=== PATIENT | male | born 1960 | race Caucasian/White ===

== ENCOUNTER → 2021-04-11 11:23 | Outpatient (CLI) | payer BC, SELFPAY ==
[2021-04-11 12:27] LABS: Blood Urea Nitrogen 16 mg/dl (9-20); Estimated Glomerular Filt Rate 76 ml/min (>60); GFR (African American) 92 ML/MIN (>60)
== END ==
PROVIDERS: Visit Provider Family Medicine
DX: R10.32 Left lower quadrant pain (principal); R19.04 Left lower quadrant abdominal swelling, mass and lump
CPT/HCPCS: 36415; 82565; 84520

== ENCOUNTER → 2021-04-17 08:41 | Outpatient (CLI) | payer BC, SELFPAY ==
--- NOTE | 2021-04-17 08:46 | CT_ITS ---
PROCEDURE: CT ABDOMEN PELVIS W CON CLINICAL INDICATION: LLQ ABD PAIN/ABD MASS COMPARISON: CT ABDPELW/O CT ABD PELVIS W/O CONTRAST from 05/13/2017 TECHNIQUE: IV Contrast: 75ML Isovue 370 Oral Contrast None Axial images obtained with sagittal and coronal reformats. All CT scans at the facility use one or more dose reduction, viz: automated exposure control, ma/kV adjustment per patient size (including targeted exams where dose is matched to indication, i.e. head), or iterative reconstruction technique. FINDINGS: There is mild scar versus atelectasis in the lung bases. Mild diffuse fatty infiltration of the liver. No focal liver or splenic lesion. Gallbladder pancreas and adrenal glands are normal. A few small nonobstructing stones in the right kidney. Left kidney is normal. No upper abdominal lymphadenopathy. Mild calcification of the abdominal aorta without aneurysm. Moderate amount of stool throughout the colon. No distended large or small bowel or bowel wall thickening. Large left inguinal hernia containing a loop of sigmoid colon without evidence of obstruction or incarceration. Scattered diverticula noted in the colon without diverticulitis. Bladder is normal. Prostate gland and seminal vesicles appear unremarkable. No enlarged iliac or inguinal chain lymph nodes. Appendix is normal. Severe degenerative change of the left hip joint with moderate degenerative change of right hip joint. Some diffuse degenerative change of the lumbar spine, particularly at L5-S1. No acute bony abnormality. IMPRESSION: Large left inguinal hernia containing a loop of sigmoid colon without evidence of obstruction or incarceration. Scattered diverticula on the colon without diverticulitis. Moderate amount of stool throughout the colon. No free intraperitoneal air or fluid. Mild diffuse fatty infiltration of the liver. [id number] right nephrolithiasis. No CT evidence of obstructive uropathy. Findings were discussed by telephone with Dr. Diamond on 04/17/2021 at approximately 1040 hours. Dictated by: Jim Toussaint MD 04/17/2021 10:38 Jim Toussaint MD in [facility] 04/17/2021 10:38
== END ==
PROVIDERS: PCP Family Medicine; Visit Provider Family Medicine
DX: R10.32 Left lower quadrant pain (principal); R19.04 Left lower quadrant abdominal swelling, mass and lump
CPT/HCPCS: 74177; Q9967

== ENCOUNTER → 2021-04-26 13:27 | Outpatient (CLI) | payer BC, SELFPAY ==
--- NOTE | 2021-04-26 13:33 | XR_ITS ---
PROCEDURE: XR KNEE LT 3V CLINICAL INDICATION: LT KNEE PAIN, UNSPECIFIED CHRONICITY COMPARISON: No exams were available for comparison FINDINGS: No fracture or dislocation. No lytic or blastic change. There is normal mineralization. The joint spaces are well-preserved. No significant degenerative/arthritic changes. No erosive changes evident. Other findings:None. IMPRESSION: Negative left knee Dictated by: Luiz Vital MD 04/26/2021 14:50 Luiz Vital MD in [facility] 04/26/2021 14:50
== END ==
PROVIDERS: PCP Family Medicine; Visit Provider Family Medicine
DX: M25.562 Pain in left knee (principal)
CPT/HCPCS: 73562

== ENCOUNTER → 2021-05-25 09:29 | Outpatient (CLI) | payer BC, SELFPAY ==
[2021-05-25 09:46] LABS: Basophils % 0.6 % (0.1-2.0); Eosinophils # 0.2 K/mm3 (0.0-0.4); Eosinophils % 2.7 % (0.1-12.0); Hematocrit 43.6 % (42.0-52.0); Hemoglobin 14.2 g/dL (14.1-18.0); Lymphocytes # 1.2 K/mm3 (0.7-4.5); Lymphocytes % 17.5 % (10-50); Mean Corpuscular HGB Conc 32.5 g/dL (31.8-35.4); Mean Corpuscular Volume 92.3 fl (80-94); Mean Platelet Volume 8.8 fl (7.4-10.4); Monocytes # 0.5 K/mm3 (0.1-1.0); Monocytes % 7.9 % (1.7-9.3); Neutrophils # 4.7 K/mm3 (1.8-7.8); Neutrophils % 71.3 % (37.0-80.0); Platelet Count 199 K/mm3 (142-424); Red Blood Count 4.72 M/mm3 (4.60-6.20); Red Cell Distribution Width 14.1 % (11.5-17.5); White Blood Count 6.6 K/mm3 (4.8-10.8)
[2021-05-25 10:29] LABS: Anion Gap 12.1 mEq/L (5-15); Blood Urea Nitrogen 18 mg/dl (9-20); Calcium 8.9 mg/dl (8.4-10.2); Carbon Dioxide 30 mmol/L (22.0-30.0); Chloride 107 mmol/L (98-107); Estimated Glomerular Filt Rate 62 ml/min (>60); GFR (African American) 75 ML/MIN (>60); Glucose 107 mg/dl (74-100); Potassium 5.1 mmoL/L (3.5-5.1); Sodium 144 mmol/L (136-145)
== END ==
PROVIDERS: Visit Provider Surgery
DX: Z01.812 Encounter for preprocedural laboratory examination (principal); Z20.822 Contact with and (suspected) exposure to COVID-19; K40.90 Unilateral inguinal hernia, without obstruction or gangrene, not specified as recurrent
CPT/HCPCS: 80048; 85025; U0003

== ENCOUNTER 2021-05-28 08:28 | Day surgery (SDC) | payer BC, SELFPAY ==
[2021-05-22 10:42] VITALS: BMI 24.3
[2021-05-28] VITALS (10 sets, daily range): BP systolic 146–172; BP diastolic 80–98; PULSE 61–86; RESP 12–18; TEMP 36.1–43; O2SAT 93–97
--- NOTE | 2021-05-28 08:45 | P.HP_ITS ---
HPI HPI: Patient is a 60-year-old male from [facility] referred by Dr. Diamond for left inguinal hernia. 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 Patient has been undergoing routine physical exam and had noted some swelling in the left inguinal area. He states that this has been present for at least several months. He denies any pain. Denies any inciting event. He was noted to have a moderately large hernia on examination and underwent CT scan which reveals moderately large left inguinal hernia containing loop of sigmoid colon. Patient denies any obstructive symptoms. [facility] History I have reviewed the patient's past medical history: Yes Medical History: Denies:: Cancer, Diabetes Mellitus Type 1, Diabetes Mellitus Type 2, Internal Pacemaker, MRSA *Have you ever received a pneumonia vaccine?: No *Have you received a flu vaccine this season?: Yes Other Surgeries: No: Pacemaker Amputation: No Fractures: No - *Social History Last grade of school completed: High school graduate Smoking Status: Never smoker Alcohol Intake: never Substance Use Type: denies use *Occupational Status:: employed Housing: house Household Members: spouse *Travel in the last 8 weeks: None Family Hx:: No significant family history Review of Systems - Review of Systems Review of systems:: pertinent systems reviewed and negative unless documented below Meds Home Medications Medication Instructions Recorded Confirmed Type allopurinol 300 mg tablet 300 mg PO DAILY tab 04/26/21 04/26/21 History rivaroxaban 20 mg tablet 20 mg PO DAILY tab 04/26/21 04/26/21 History Allergies Allergy/AdvReac Type Severity Reaction Status Date / Time No Known Allergies Allergy Unverified 04/26/21 14:36 Exam - Constitutional no acute distress - *Routine HEENT Exam Head: Present: normocephalic Eye: Present: EOMI, PERRL ENT: Present: mucous membranes moist - *Routine Neck Exam Present: supple. Absent: lymphadenopathy - *Routine Respiratory Exam Present: CTA bilaterally - *Routine Cardiovascular Exam Present: RRR - *Routine Abdominal Exam Present: soft, normoactive bowel sounds. Absent: tenderness - *Routine Rectal Exam Rectal:: deferred - *Routine Genitalia Exam Genitalia:: deferred Comment:: LEFT inguinal hernia - *Routine Extremities Exam Absent: cyanosis, clubbing, edema - *Routine Skin Exam Present: warm. Absent: rash - *Routine Neurological Exam Present: alert, oriented X3 Assessment and Plan - Assessment and plan all Dx Assessment and Plan for all problems:: He has moderately large left inguinal hernia. Plan is for open repair
--- NOTE | 2021-05-28 08:59 | P.PN_ITS ---
[facility] Anesthesia Checklist - Patient Identification Patient Identification: Arm Band - Structural Data Admitted From: Home Planned Operative Procedure/s: Open inguinal hernia repair Consent for Planned Operative Procedure(s) Verified: Yes - NPO Status Verified Time NPO: 00:00 - Additional verifications Anesthesia Reactions: No Hx Blood Transfusions: No Blood Transfusion Reaction: No - Airway Assessment C-Spine Mobility Assessed: Yes TMJ Mobility Assessed: Yes Dentition: Good Dentition - Neurological Assessment Level of Consciousness: Awake Hx Seizures: No Numbness or tingling in extremities: No - Anesthesia Plan Anesthesia Risk discussed: Yes Anesthesia Plan: Verified ASA Class: II Anesthesia Type: General [facility] History I have reviewed the patient's past medical history: Yes Medical History: Denies:: Cancer, Diabetes Mellitus Type 1, Diabetes Mellitus Type 2, Internal Pacemaker, MRSA, Seizures *Have you ever received a pneumonia vaccine?: No *Have you received a flu vaccine this season?: Yes Other Medical History: Denies: Blood Transfusion Reaction Anesthesia experience/problems:: None Other Surgeries: No: Pacemaker Amputation: No Fractures: No - *Social History Last grade of school completed: High school graduate Smoking Status: Never smoker Alcohol Intake: never Substance Use Type: denies use *Occupational Status:: employed Housing: house Household Members: spouse *Travel in the last 8 weeks: None Family Hx:: No significant family history
--- NOTE | 2021-05-28 11:14 | P.OP_ITS ---
Date of procedure: 05/28/21 Pre-op Diagnosis:: Left inguinal hernia Post-op Diagnosis:: Same Procedure performed:: Open repair of left inguinal hernia with placement of large sized Bard prefix mesh with onlay mesh Surgeon:: Kartik Baer MD WATER TECHNICIAN:: Barbara Ellis Anesthesia: GETA Estimated blood loss (mL): 15 Clinical Note:: Patient is a 60-year-old male from [facility] referred by Dr. Diamond for left inguinal hernia. 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 Patient has been undergoing routine physical exam and had noted some swelling in the left inguinal area. He states that this has been present for at least several months. He denies any pain. Denies any inciting event. He was noted to have a moderately large hernia on examination and underwent CT scan which reveals moderately large left inguinal hernia containing loop of sigmoid colon. Patient denies any obstructive symptoms. Operative findings:: Patient had a large indirect hernia with chronically incarcerated epiploic fat with the sigmoid colon intermittently herniating. There was also chronically incarcerated small direct hernia containing fat. Operative note:: Patient was taken the operating room. He was positioned supine position. General anesthesia was induced. Tam catheter was placed. Lower abdomen and perineum were prepped and draped in the standard surgical fashion. Oblique incision was made in the left inguinal area superior to landmarks identifying the inguinal ligament. Dissection was carried down through subcutaneous tissues and Venu's fascia using electrocautery with hemostasis achieved as needed. Extra oblique muscle was cleaned free. External oblique muscle was opened along the length of its fibers. Underlying cord structures were identified. Due to the chronic nature of the large hernia with attenuated tissues it was difficult to identify ilioinguinal nerve. Cord structures were dissected free from the floor the inguinal canal and encircled with a Sharon drain. Dissection was carried out. Prolonged dissection was performed and ultimately hernia sac and contents were identified and the hernia sac was opened. There was chronically incarcerated sigmoid colon epiploic fat with evidence of the sigmoid colon herniated through the indirect defect intermittently. Hernia sac was opened and ultimately hernia contents including sigmoid colon and fatty tissues were reduced. Hernia sac was highly ligated with a 2-0 Vicryl pursestring suture. Extraneous peritoneum of the hernia sac was excised and sent off as a specimen. Large sized Bard prefix mesh plug was inserted into the region of the internal ring. Medial leaves of the mesh plug were sutured to the shelving edge of the inguinal ligament and to transversalis fascia with 2-0 PDS. The onlay mesh was secured to Sivakumar's ligament and to the shelving edge of the inguinal ligament with a running 2-0 PDS. It was secured superomedially to the transversalis fascia with interrupted 2-0 PDS horizontal mattress sutures. This was able to cover the direct hernia. The 2 tails of the mesh were sutured to 1 another to reconstruct the internal ring. There was good hemostasis. Local anesthetic was infiltrated into the deep tissues as well as for an inguinal nerve block. Cord structures were returned to the normal anatomic position. External Bleich muscle was closed over the cord structures with a running 2-0 Vicryl. Vneu's fascia was closed with running 2-0 Vicryl. Skin was closed with running 3-0 S tratafix. Steri-Strips and dressings were applied. Condition: stable Disposition: PACU Specimens:: Hernia sac Complications:: None immediately apparent
--- NOTE | 2021-05-28 11:31 | P.PN_ITS ---
[facility] Anesthesia Record Part I Intake, IV Amount: 1,500 Estimated blood loss (mL): 0 Urine output (mL): 0 Blood Pressure: 156/80 SaO2: 94 Pulse Rate: 86 Respiratory Rate: 12 Temperature: 97 F Patient is:: Awake, Stable Stable to PACU at:: 11:25
[2021-05-28 14:13] LABS: Microscopic,Cath URINE MICROSCOPIC (MICROSCOPIC)
[2021-05-28 14:17] LABS: Appearance,Urine/Cath CLEAR (Clear); Bilirubin,Cath Negative (Negative); Blood, Urine/Cath Negative (Negative); Color,Urine/Cath YELLOW (Yellow); Glucose,Urine/Cath (UA) Negative (Negative); Ketones,Urine/Cath Negative (Negative); Leukocyte Esterase,Cath Negative (Negative); Nitrate,Cath Negative (Negative); Protein,Urine/Cath Negative (Negative); Specific Gravity, Urine/Cath 1.015 (1.005-1.030)
[2021-05-28 14:32] LABS: RBC,Urine/Cath Occasional # /hpf (0-3); Squamous Epithelial Ur./Cath Occasional #/hpf (0-5)
--- NOTE | 2021-05-29 10:14 | P.PN_ITS ---
[facility] Anesthesia Record Part II Discharge Time: 11:55 Destination: Surgical Day Care (OP Surgery) PACU nurse assessment reviewed?: Yes Patient Condition:: Good Anesthesia Complications:: None Swallowing reflex intact?: Yes Cyanosis?: No Blood Pressure: 149/96 Pulse Rate: 67 Temperature: 97.2 F Mental Status: Alert & Oriented Pain level:: 0 Nausea and/or vomitting:: None Intake, IV Amount: 0
[2021-05-29 10:15] VITALS: BP 149/96; PULSE 67; TEMP 36.2
== END 2021-05-28 12:36 | disposition home or self-care (01) ==
LOC: OR 08:30
PROVIDERS: PCP Family Medicine; Visit Provider Surgery
PROC: (CPT 49507; principal; 2021-05-28 10:00)
DX: K40.30 Unilateral inguinal hernia, with obstruction, without gangrene, not specified as recurrent (principal)
CPT/HCPCS: 49507; 81001; 96374; J0131; J2710

== ENCOUNTER 2022-09-02 10:00 | Outpatient (RCR) | payer OTHER, SELFPAY | END 2022-09-02 10:05 | disposition home or self-care (01) | LOC: PT 10:00 | PROVIDERS: PCP Family Medicine; Visit Provider Nurse Practitioner Family | DX: M23.204 Derangement of unspecified medial meniscus due to old tear or injury, left knee (principal) | CPT/HCPCS: 97010; 97014; 97110; 97112; 97140; 97163; 97164; 97530; G0283 ==

== ENCOUNTER 2024-12-07 20:18 | Emergency (ER) | payer OTHER, SELFPAY ==
[2024-12-07] VITALS (9 sets, daily range): BP systolic 115–185; BP diastolic 79–122; PULSE 79–111; RESP 18; TEMP 36.8–36.9; O2SAT 95–98; BMI 26.9
--- NOTE | 2024-12-07 20:29 | ECG_ITS ---
APPROVED REPORT Exam: Resting ECG HR:101 bpm ECG Measurements Heart Rate 101 AXES VT 144 P 54 QRSd 72 QRS -10 QT 315 T 60 QTc 373 Conclusion SINUS TACHYCARDIA INFERIOR MYOCARDIAL INFARCTION , PROBABLY OLD [40+ ms Q WAVE AND/OR ST/T ABNORMALITY IN II/aVF] ABNORMAL ECG UNCONFIRMED REPORT Electronically signed by : HANNA IBANEZ, 12/09/2024 06:52:33
--- NOTE | 2024-12-07 20:30 | PC.NURSE ---
Nasal clamp applied per MD
[2024-12-07] MEDS: SILVER NITRATE APPLICATOR 1 EACH TP (20:32)
[2024-12-07] MEDS: OXYMETAZOLINE NASAL SPRAY 0.05% 15ML NS (20:32)
--- NOTE | 2024-12-07 20:34 | HMH.EDGENADL ---
Discharge Plan Disposition Patient Disposition: Home, Self-Care Chief Complaint: Epistaxis Prescriptions Prescriptions: No Action rivaroxaban 20 mg tablet 20 mg PO DAILY Patient Comments: TAKE ONE TABLET BY MOUTH EVERY DAY allopurinol 300 mg tablet 300 mg PO DAILY Patient Comments: take 1 & ONE-HALF TABLET BY MOUTH EVERY DAY Referrals Follow up/Referrals: Hermilo Diamond MD [Primary Care Provider] - See instructions Activity Restrictions/Add. Instructions Additional Instructions/Restrictions: Call your family doctor to establish care for this visit to the emergency department and schedule follow-up within 48 hours to ensure improvement. If you have any worsening of your condition or any other concerning signs or symptoms, return to the emergency department or your primary care doctor for further evaluation. Clinical Impressions Clinical Impression: Epistaxis Instructions Patient Instructions: DI for Nosebleed Print Language Print Language: Korean Discharge ED Provider: Serge Tang General Adult HPI General Chief complaint: Epistaxis Stated complaint: nosebleed Time Seen by Provider: 12/07/24 20:22 Mode of Arrival: Ambulatory Source of Information: Patient Limitations: No Limitations Description of Symptoms (Recalled from ER Triage Doc. by RN): Patient has had a nosebleed since 4pm- states he is on xarelto. States nosebleed was caused by blowing his nose. History of Present Illness HPI narrative: Please note that above description of symptoms, in this electronic medical record under categorization of recalled from ER triage doctor by RN are reflective of an initial nursing assessment, however, is not reflective of my full history and physical exam that was personally taken and clarified. Consequentially, this preceding description of symptoms, which may include the patient's categorized chief complaint in the EMR, do not reflect my personal clinical impression, and the ultimate description of history of present illness and patient stated complaints should be deferred to this section of the note. Unless stated otherwise or congruent with this section of the note, additional signs, symptoms, or incongruence should be interpreted as inaccurate with my clinical impression. Related Data Home Medications ?Medication ?Instructions ?Recorded ?Confirmed allopurinol 300 mg tablet 300 mg PO DAILY gout 04/26/21 12/07/24 rivaroxaban 20 mg tablet 20 mg PO DAILY Blood thinner 04/26/21 12/07/24 Allergies Allergy/AdvReac Type Severity Reaction Status Date / Time No Known Allergies Allergy Unverified 06/14/21 09:[address] [place] [address] Disclaimer: The information contained in this section may have been updated after the patient was seen, as this information can be updated by other users. 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 current occupational exposures/hazards: No caffeine: Yes Have you lived/traveled outside [place] in past 30 days?: No Contact w/someone who lives/traveled outside US past 30 days?: No Exposure to someone with infectious disease in past 14 days?: No Do you have a fever (greater than 100.4 F or 38 C)?: No Have you tested positive for COVID-19: No Exposed to someone with COVID-19 in past 14 days?: No Do you have a sore throat?: No Do you have a cough?: No Do you have any weakness?: No Do you have any diarrhea?: No Are you experiencing any unusual bleeding?: No Do you have any muscle aches/pain?: No Do you have any abdominal pain?: No Are you experiencing loss of taste or smell?: No Other Medical History Have you received the Flu Vaccine for this season: Yes Have you received the Pneumonia Vaccine: No ROS Obtained: Yes All systems reviewed & no additional complaints except as documented Physical Exam General General appearance: alert Head Head exam: atraumatic and normocephalic Eye Eye exam: Present normal appearance, PERRL and EOMI Neck Neck exam: Present normal inspection, full ROM and trachea midline Respiratory Respiratory exam: Absent respiratory distress, wheezes, stridor, accessory muscle use or prolonged expiratory phase Cardiovascular Cardiovascular exam: Present other (Pulses equal symmetric in upper and lower extremities) Abdominal Exam Abdominal exam: Present soft; Absent distention, tenderness or pulsatile mass Extremities Exam Extremities exam: Absent edema Neurological Exam Neurological exam: Present alert, oriented X3 and CN II-XII intact; Absent motor sensory deficit Skin Skin exam: Present warm and dry; Absent diaphoresis or erythema Medical Decision Making Medical Records Medical records reviewed: Yes I reviewed the patient's medical records. Screening: Per USPSTF and CDC recommendations, given the prevalence of disease in our region, it is our hospital?s policy to screen for HIV and viral Hepatitis for all patients aged 18 and over and those with ongoing risk factors. Zak Inquiry Pt receiving controlled substance: No Zak was queried for this patient: No Vital Signs: 12/07/24 20:19 12/07/24 20:24 12/07/24 20:25 Temperature 98.5 F Temperature Source Oral Pulse Rate 111 H 109 H Pulse Rate [Right Radial] 102 H Respiratory Rate 18 Blood Pressure 185/122 H 162/102 H Blood Pressure [Right Arm] 162/101 H Blood Pressure Mean [Right Arm] 121 Blood Pressure Source [Right Arm] Automatic Cuff Blood Pressure Position [Right Arm] Supine 02 Sat by Pulse Oximetry 97 95 98 Oxygen Delivery Method Room Air Room Air Room Air 12/07/24 20:30 Temperature Temperature Source Pulse Rate 105 H Pulse Rate [Right Radial] Respiratory Rate Blood Pressure 148/94 H Blood Pressure [Right Arm] Blood Pressure Mean [Right Arm] Blood Pressure Source [Right Arm] Blood Pressure Position [Right Arm] 02 Sat by Pulse Oximetry 97 Oxygen Delivery Method Room Air Orders (Tests/Meds): ED MEDICATIONS Discontinued Medications Generic Name Dose Route Start Last Admin Trade Name Freq PRN Reason Stop Dose Admin Oxymetazoline HCl 1 ml 12/07/24 20:30 12/07/24 20:32 Oxymetazoline Nasal Pryor 0.05% 15ml NS 12/07/24 20:31 1 ml ONCE ONE Administration Silver Nitrate 1 each 12/07/24 20:30 12/07/24 20:32 Silver Nitrate Applicator TP 12/07/24 20:31 1 each ONCE ONE Administration Medical Decision Narrative: 64-year-old male presenting with nosebleed. 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 States that he started bleeding about 4 hours prior to this visit. Has not been able to make it stop. He is a numerous nosebleeds recently, usually able to get them to stop on his own. No lightheadedness, shortness of breath, chest pain, nausea, vomiting, etc. History was obtained via conversation with patient. On arrival, patient hemodynamically stable, alert, [oriented x4, ][appropriate, ]GCS [15], moving all extremities spontaneously, pupils equal and reactive to light. Full physical exam performed and significant for uncomfortable appearing male no acute distress. Mildly tachycardic and hypertensive. Bleeding in his left nare, brisk venous bleed. Differential includes anterior versus posterior epistaxis, among others. Patient placed on continuous cardiac monitoring and continuous pulse ox with initial blood pressure 162/101, heart rate 102, saturation 97% on room air. [Independent interpretation of EKG shows] sinus tachycardia 101 bpm with [place] 144, QRS 72, QTc 373. No acute ischemic change. Normal axis. Patient was given oxymetazoline, topical silver nitrate for symptomatic management[ and correction of underlying abnormalities]. Labs were considered, but given patient clinically well-appearing, no longer bleeding, hemodynamically stable, not deemed necessary. Patient was placed in observation beginning at 8:30 PM in order to apply medications and determine need for admission versus home-going. The patient was provided oxymetazoline, silver nitrate, nasal plug while awaiting results. On reevaluation, around 930, patient has very slow bleed at the anterior portion of his septum. This was also cauterized. No further bleeding. At this time, I feel patient is appropriate for discharge. Total observation time 1 hour. Given patient presentation, workup, history, this most likely represents acute anterior epistaxis in the setting of anticoagulation. Because patient at baseline without signs or symptoms of clinical decompensation, deemed appropriate for discharge. I discussed my clinical impression with patient[] and answered all questions. At this time, the evidence for any other entities in the differential is insufficient to warrant any further testing or ED observation. This was explained as well. Advisory was given that persistent or worsening symptoms require further evaluation. I confirmed the understanding of this discussion. Veterinarian disclaimer Much of this encounter note is an electronic certified ophthalmic medical technician spoken language to printed text. Electronic certified ophthalmic medical technician of the spoken language may permit errors. Although I have reviewed the note, some errors may still exist. Critical Care Critical Care Time Critical Care Time: No
[2024-12-07] MEDS: BACITRACIN ZINC OINT 30GM TUBE TP (22:16)
[2024-12-07] MEDS: TRANEXAMIC ACID 1,000 MG in 0.9 % SODIUM CHLORIDE 250 ML 32.5 MG TP (22:17)
[2024-12-07] MEDS: AMOXICILLIN/CLAVULANATE POTASSIUM 875/125MG TABLET 1 EACH PO (23:32)
== END 2024-12-07 23:38 | disposition home or self-care (01) ==
PROVIDERS: Emergency Provider Emergency Medicine; PCP Family Medicine
DX: R04.0 Epistaxis (principal); Z79.01 Long term (current) use of anticoagulants
CPT/HCPCS: 93005; 99283

== ENCOUNTER 2025-08-31 08:52 | Day surgery (SDC) | payer OTHER, SELFPAY ==
[2025-08-25 15:08] VITALS: BMI 25.6
--- NOTE | 2025-08-30 07:13 | EXP.HP ---
History of Present Illness *Admission Date: 08/31/25 *History of present illness: Mr. Martinez is a 64-year-old gentleman who is here for screening/surveillance colonoscopy. The patient does have a personal history of colon polyps and his last colonoscopy was in 2011. The examination is deemed medically necessary for screening/surveillance colonoscopy. The patient has been seen, interviewed and examined prior to the procedure by both myself and the anesthesia provider. [facility] Disclaimer: The information contained in this section may have been updated after the patient was seen, as this information can be updated by other users. 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 current occupational exposures/hazards: No caffeine: Yes Have you lived/traveled outside [place] in past 30 days?: No Contact w/someone who lives/traveled outside [place] past 30 days?: No Exposure to someone with infectious disease in past 14 days?: No Do you have a fever (greater than 100.4 F or 38 C)?: No Have you tested positive for COVID-19?: No Exposed to someone with COVID-19 in past 14 days?: No Do you have a sore throat?: No Do you have a cough?: No Do you have any weakness?: No Are you experiencing any nausea/vomitting?: No Do you have any diarrhea?: No Are you experiencing any unusual bleeding?: No Do you have any muscle aches/pain?: No Do you have any abdominal pain?: No Are you experiencing loss of taste or smell?: No Other Medical History Have you received the Flu Vaccine for this season: Yes Have you received the Pneumonia Vaccine: No Review of Systems Review of Systems Review of systems (narrative): Negative *Cardiovascular Comments: Negative *Gastrointestinal Comments: Negative *Genitourinary Comments: Negative *Musculoskeletal Comments: Negative *Neurologic Comments: Negative Meds Home Medications and Allergies Home Medications ?Medication ?Instructions ?Recorded ?Confirmed ?Type allopurinol 300 mg tablet 300 mg PO DAILY gout 04/26/21 08/31/25 History rivaroxaban 20 mg tablet 20 mg PO DAILY Blood thinner 04/26/21 08/31/25 History sodium,potassium,mag sulfates 17.5 See Rx Instructions PO .COMPLEX 08/17/25 08/31/25 Rx gram-3.13 gram-1.6 gram oral soln #354 mL (Suprep Bowel Prep Kit) amlodipine 5 mg tablet 5 mg PO DAILY 08/25/25 08/31/25 History New Prescriptions to Start Prescriptions: Allergies Allergy/AdvReac Type Severity Reaction Status Date / Time No Known Allergies Allergy Verified 08/31/25 09:52 Exam *Routine HEENT Exam Head: Present normocephalic Eye: Present EOMI and PERRL ENT: Present mucous membranes moist *Routine Neck Exam Neck: Present supple *Routine Respiratory Exam Respiratory: Present CTA bilaterally *Routine Cardiovascular Exam Cardiovascular: Present RRR *Routine Abdominal Exam Abdominal: Present soft and normoactive bowel sounds; Absent tenderness *Routine Rectal Exam Rectal:: deferred *Routine Genitalia Exam Genitalia:: deferred *Routine Extremities Exam Extremities: Absent cyanosis, clubbing or edema *Routine Skin Exam Skin: Present warm; Absent rash *Routine Neurological Exam Neurological: Present alert and oriented X3 Assessment and Plan *Assessment and plan (1) Personal history of colon polyps, unspecified: Status: Acute Category: Medical Code(s): Z86.0100 - Personal history of colon polyps, unspecified (2) Screening for colon cancer: Status: Acute Category: Medical Code(s): Z12.11 - Encounter for screening for malignant neoplasm of colon Plan A/P: 1. Personal history of colon polyps (unspecified) is the preprocedural diagnosis. The patient's last colonoscopy was 13 years ago. The patient will be anesthetized/sedated using MAC sedation. The patient has been seen and examined. Cardiac and lung assessment prior to the examination is stable. Proceed with planned screening/surveillance colonoscopy.
--- NOTE | 2025-08-31 06:58 | HMH.PROCNOTE ---
[facility] Procedure Note Date: 08/31/25 Time: 11:08 Procedure Note:: Colonoscopy Procedure Report: Colonoscopy with cold snare polypectomy Endoscopist: Alistair Acharya II, MD Referring physician: Hermilo Diamond MD Date of Procedure: August 31, 2025 Equipment: Olympus [id number] adult colonoscope Sedation: MAC sedation Indication: Mr. Martinez is a 64-year-old gentleman who is here for screening/surveillance colonoscopy. The patient reports no abdominal pain, weight loss, change in his bowel habits or rectal bleeding. He reports no family history of colon cancer. The patient does have a personal history of colon polyps and his last colonoscopy was in 2011. The examination is deemed medically necessary for screening/surveillance colonoscopy. Procedure: Prior to the procedure, a history and physical exam was performed, and patient's medications and allergies were reviewed. The risks, benefits and alternatives of the sedation and procedure were discussed with the patient. All questions were answered and informed consent was obtained. The patient was brought to the procedure room. Patient identification and proposed procedure were verified by the physician and the nurse. The patient was placed in a left lateral decubitus position and the scope was passed under direct vision. Throughout the procedure, the patient's blood pressure, pulse, and oxygen saturations were monitored continuously. The colonoscopy was accomplished without difficulty. The patient tolerated the procedure well. Findings: On digital rectal examination there was normal rectal tone. There were no external hemorrhoids. The prostate was 3+, mildly enlarged but symmetric without nodules. The colonoscope was introduced through the anal canal to the rectum and advanced to the cecum. The ileocecal valve and appendiceal orifice were identified. The scope was advanced a short distance into the ileum which appeared grossly normal. The scope was then withdrawn into the colon. The cecum, ascending and transverse colon and mucosa were grossly normal. There was a single polyp (descending colon (6 mm)) which was removed via cold snare polypectomy. There were scattered diverticuli throughout the descending and sigmoid colon (LEFT colon). The rectum itself was normal. Upon retroflexion within the rectum there were grade 2 internal hemorrhoids. The preparation was excellent throughout with Jefferson Preparation Score of 9. The cecal time was 12 minutes. Impression: 1. Descending colon polyp (6 mm) 2. Left-sided diverticulosis 3. Grade 2 internal hemorrhoids Plan: I will follow-up the polyp histology and recommend repeat screening/surveillance colonoscopy again in 7 years. I would encourage psyllium bulking fiber supplementation on a maintenance basis.
[2025-08-31 09:54] VITALS: BP 164/60; PULSE 76; RESP 18; TEMP 36.2; O2SAT 95; BMI 25.6
[2025-08-31] MEDS: LACTATED RINGERS 1000ML 1,000 ML 50 ML IV (10:03)
--- NOTE | 2025-08-31 10:15 | EXP.ANES.CKL ---
[facility] Disclaimer: The information contained in this section may have been updated after the patient was seen, as this information can be updated by other users. 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 current occupational exposures/hazards: No caffeine: Yes Have you lived/traveled outside [place] in past 30 days?: No Contact w/someone who lives/traveled outside [place] past 30 days?: No Exposure to someone with infectious disease in past 14 days?: No Do you have a fever (greater than 100.4 F or 38 C)?: No Have you tested positive for COVID-19?: No Exposed to someone with COVID-19 in past 14 days?: No Do you have a sore throat?: No Do you have a cough?: No Do you have any weakness?: No Are you experiencing any nausea/vomitting?: No Do you have any diarrhea?: No Are you experiencing any unusual bleeding?: No Do you have any muscle aches/pain?: No Do you have any abdominal pain?: No Are you experiencing loss of taste or smell?: No [facility] Anesthesia Checklist Patient Identification Patient Identification: Arm Band and Verbal (Name & ) Structural Data Admitted From: Home Planned Operative Procedure/s: colonscopy Consent for Planned Operative Procedure(s) Verified: Yes Verified Documents: Surgical Consent and History and Physical NPO Status Verified Time NPO: 00:00 Additional verifications Anesthesia Reactions: No Hx Blood Transfusions: No Blood Transfusion Reaction: No Airway Assessment Mallampati Score:: Class II Dentition: Good Dentition Neurological Assessment Level of Consciousness: Awake, Alert and Appropriate Hx Seizures: No Numbness or tingling in extremities: No Anesthesia Plan Anesthesia Risk discussed: Yes ASA Class: II Anesthesia Type: MAC
[2025-08-31 11:10] VITALS: BP 100/63; PULSE 72; RESP 16; O2SAT 96
[2025-08-31 11:20] VITALS: BP 102/62; PULSE 67; RESP 16; TEMP 36.7; O2SAT 97
[2025-08-31 11:30] VITALS: BP 108/67; PULSE 70; RESP 18; TEMP 36.7; O2SAT 98
[2025-08-31 11:40] VITALS: BP 131/85; PULSE 68; RESP 18; TEMP 36.7; O2SAT 97
== END 2025-08-31 11:45 | disposition home or self-care (01) ==
PROVIDERS: PCP Family Medicine; Visit Provider Internal Medicine Gastroenterology
PROC: 0DJD8ZZ Inspection of Lower Intestinal Tract, Via Natural or Artificial Opening Endoscopic (ICD-10-PCS; CPT 45378; principal; 2025-08-31 10:30)
DX: Z12.11 Encounter for screening for malignant neoplasm of colon (principal); D12.4 Benign neoplasm of descending colon; N40.0 Benign prostatic hyperplasia without lower urinary tract symptoms; K57.30 Diverticulosis of large intestine without perforation or abscess without bleeding; K64.1 Second degree hemorrhoids; I82.A19 Acute embolism and thrombosis of unspecified axillary vein; Z86.0100 Personal history of colon polyps, unspecified; Z79.01 Long term (current) use of anticoagulants
CPT/HCPCS: 45385; J2003; J2704; J7120